=== PATIENT | female | born 1965 | race Caucasian/White ===

== ENCOUNTER 2021-12-06 14:31 | Emergency (ER) | payer MEDICARE, SELFPAY ==
[2021-12-06 14:43] VITALS: BP 130/84; PULSE 87; TEMP 35.7; BMI 20.3
--- NOTE | 2021-12-06 14:56 | ED_ITS ---
HPI - General Adult General Time Seen by Provider: 14:56 Date Seen: 12/06/21 Chief complaint: Jaw Injury/Pain Stated complaint: Swelling, pain left side jaw Time Seen by Provider: 12/06/21 14:54 Source: patient and RN notes reviewed Mode of arrival: ambulatory Limitations: no limitations History of Present Illness HPI narrative: Patient is a 56-year-old female coming in with increasing dental pain and swelling in her left lower jaw. She has not had any fevers. She does have a dentist but states she always the dentist money. This tooth has been bothering her for couple days now. The face started swelling. It is painful in her mouth. Related Data Home Medications Medication Instructions Recorded Confirmed albuterol sulfate 90 mcg/actuation inhalation 12/06/21 aerosol inhaler (Ventolin HFA) duloxetine 60 mg capsule,delayed mg PO 12/06/21 release ergocalciferol (vitamin D2) 1,250 12/06/21 mcg (50,000 unit) capsule omeprazole 40 mg capsule,delayed mg 12/06/21 release ondansetron 4 mg disintegrating mg 12/06/21 tablet pregabalin 150 mg capsule mg 12/06/21 simvastatin 10 mg tablet mg 12/06/21 trazodone 50 mg tablet mg 12/06/21 Previous Rx's Medication Instructions Recorded penicillin V potassium 500 mg 500 mg PO TID #21 tabs 12/06/21 tablet Allergies Allergy/AdvReac Type Severity Reaction Status Date / Time kiwi Allergy Uncoded 12/06/21 14:47 Review of Systems Narrative: As per HPI PFSH PFSH Social History Smoking Status: Current every day smoker What tobacco products do you use: cigarettes Do you use any of these nicotine containing products: E-Cigarettes Second hand tobacco smoke exposure: No How often do you have a drink containing alcohol: never How often do you have six or more drinks on one occasion: Never AUDIT-C Alcohol total score: 0 Non-prescribed substance use: denies use Exam Const: Vital Signs, click to edit/add: Vital Signs - 24 hr 12/06/21 14:43 Temperature 96.3 F L Pulse Rate [Left P ulse Oximeter] 87 Blood Pressure [Ri ght Upper Arm] 130/84 Oxygen Delivery Me thod Room Air Documenting provider has reviewed patient's vital signs: yes Common normals: no apparent distress, oriented x3, no limitations, healthy appearing and alert Nutritional appearance: thin HENMT: Common normals: normocephalic, head/scalp atraumatic, hearing grossly normal bilaterally, external ears normal, external nose normal and nasal mucous membranes and turbinates normal Head and scalp: normocephalic and atraumatic Nose: external nose normal and nasal mucous membranes and turbinates normal External ear: external ears normal Other: In the left lower oral mucosa along the lower canine to 1st molar there is erythematous mucosa and fluctuant bulging that is severely tender. Externally along the the Hammad the outside she has some erythema and soft tissue swelling without fluctuance. She is able to fully open her mouth, no trismus. The teeth overlying this obvious abscess do look to be in good repair. Eye: Common normals: PERRL, EOMs intact bilaterally, conjunctivae normal and no scleral icterus Conjunctiva: conjunctiva(e) normal Pupil: PERRL Neck & C-Spine: Common normals: full ROM, no lymphadenopathy, supple, no meningeal signs, no JVD and thyroid normal Thyroid: thyroid normal Resp: Common normals: normal respiratory effort, no retractions, no use of accessory muscles and clear to auscultation bilaterally Auscultation: clear to auscultation bilaterally Cardio: Common normals: no JVD, regular rate, regular rhythm, S1 normal heart sound, S2 normal heart sound, no gallops, no clicks and no murmurs Rate: regular rate Rhythm: regular rhythm Heart sounds: S1 normal and S2 normal Neuro: Common normals: oriented x3 Sensorium/orientation: alert Meni ngeal signs: no meningeal signs Course Vital Signs Vital signs: Initial Vital Signs Temperature 96.3 F L 12/06/21 14:43 Temperature Source Temporal Artery Scan 12/06/21 14:43 Pulse Rate 87 12/06/21 14:43 Blood Pressure 130/84 12/06/21 14:43 Blood Pressure Mean 99 12/06/21 14:43 Blood Pressure Position Sitting 12/06/21 14:43 Oxygen Delivery Method 12/06/21 14:43 Vital Signs Temperature 96.3 F L 12/06/21 14:43 Pulse Rate 87 12/06/21 14:43 Blood Pressure 130/84 12/06/21 14:43 Oxygen Delivery Method 12/06/21 14:43 Temperature 96.3 F L 12/06/21 14:43 Pulse Rate 87 12/06/21 14:43 Blood Pressure 130/84 12/06/21 14:43 Oxygen Delivery Method 12/06/21 14:43 Critical Care Time Critical Care Time Critical Care Time: No Discharge Plan Discharge Clinical Impression: Encounter for incision and drainage procedure, Abscess, dental Condition: Stable Instructions: Dental Abscess (ED) Additional Instructions: Need to start antibiotics and take as prescribed. Do need to follow-up with your dentist PEREZ. It is imperative to get definitive care and thus will have to happen through a dentist. Tylenol and ibuprofen per bottle directions as needed for pain control. If further concerns, feel infection is worsening, do recommend seeking re-evaluation. Activity Level: Activity as Tolerated Diet Detail: Can eat and drink as tolerated. Be aware that salty or acidic foods may irritates this site. You have to see what you tolerate tolerate. Prescriptions: New penicillin V potassium 500 mg tablet 500 mg PO TID Qty: 21 0RF No Action trazodone 50 mg tablet Label Comments: TAKE ONE TABLET BY MOUTH ONE TIME DAILY AT BEDTIME simvastatin 10 mg tablet Label Comments: TAKE ONE TABLET BY MOUTH ONE TIME DAILY AT BEDTIME omeprazole 40 mg capsule,delayed release(DR/EC) Label Comments: TAKE ONE CAPSULE BY MOUTH ONE TIME DAILY ergocalciferol (vitamin D2) 1,250 mcg (50,000 unit) capsule Label Comments: TAKE ONE CAPSULE BY MOUTH WEEKLY albuterol sulfate [Ventolin HFA] 90 mcg/actuation HFA aerosol inhaler INHALATION Label Comments: INHALE TWO PUFFS BY MOUTH FOUR TIMES DAILY NEEDED ondansetron 4 mg tablet,disintegrating Label Comments: DISSOLVE ONE TABLET IN MOUTH DAILY NEEDED duloxetine 60 mg capsule,delayed release(DR/EC) PO Label Comments: TAKE TWO CAPSULES BY MOUTH DAILY pregabalin 150 mg capsule Label Comments: TAKE ONE OR TWO CAPSULES BY MOUTH DAILY NEEDED FOR PAIN Follow Up/Referrals: Corrine Foster PA-C [Referring] - [facility] Inst[facility] Procedures I/D Type: abscess (Dental) Details: simple Pre procedure diagnosis: Dental abscess Post procedure diagnosis: Same Verification/time out: correct patient, correct site and correct procedure Name of person performing procedure: Margarita Salvador Side (if applicable): left Local Anesthetic: lidocaine 1% (1 mL drawn up but 0.4 mL used as that is all patient could tolerate locally) Amount of anesthesia used (mL): 0.4 Technique: incised with #11 blade Amount of fluid expressed (mL): 1 Irrigation: No Packing used?: none Estimated blood loss (if any): other (specify) (Minimal oozing noted after the incision) Specimens removed (if any): None Conclusion: patient tolerated procedure
== END 2021-12-06 15:30 | disposition home or self-care (01) ==
PROVIDERS: Emergency Provider Family Medicine; PCP Physician Assistant
DX: L02.818 Cutaneous abscess of other sites (principal); K04.7 Periapical abscess without sinus
CPT/HCPCS: 10060; 41800; 99283

== ENCOUNTER 2023-09-29 19:48 | Emergency (ER) | payer MEDICARE, SELFPAY ==
[2023-09-29 20:05] VITALS: BP 138/82; PULSE 82; RESP 18; TEMP 36.6; O2SAT 98; BMI 19.3
--- NOTE | 2023-09-29 20:34 | ED.GENADULT ---
HPI - General Adult General Date Seen: 09/29/23 Chief complaint: Dental/Oral/Mouth Injury/Pain Stated complaint: L side jaw swollen Time Seen by Provider: 09/29/23 20:32 History of Present Illness HPI narrative: 58-year-old female presenting with swelling along her left jaw this been ongoing for 3 days. She has a history of an abscessed tooth on that side and has had some drainage from the left side on her gums. No fever or chills. She is not diabetic or immunosuppressed. She was brushing her teeth yesterday and she noted that it started to drain some pus for on the root of that tooth but it is still swollen and she suspects is probably still an abscess in there. She does not have money to afford her dentist. She says her dental clinic wants 500 dollars to pull her tooth. She recalls in the past she did have a incision and drainage in the ER and then a course of antibiotics get her to calm down. Review of medical record indicates that she was seen in the ER in November 2021. Treated with a course of penicillin V for the dental abscess. Related Data Home Medications ?Medication ?Instructions ?Recorded ?Confirmed albuterol sulfate 90 mcg/actuation inhalation 12/06/21 aerosol inhaler (Ventolin HFA) duloxetine 60 mg capsule,delayed mg PO 12/06/21 release ergocalciferol (vitamin D2) 1,250 12/06/21 mcg (50,000 unit) capsule omeprazole 40 mg capsule,delayed mg 12/06/21 release ondansetron 4 mg disintegrating mg 12/06/21 tablet pregabalin 150 mg capsule mg 12/06/21 simvastatin 10 mg tablet mg 12/06/21 trazodone 50 mg tablet mg 12/06/21 Previous Rx's ?Medication ?Instructions ?Recorded penicillin V potassium 500 mg 500 mg PO TID #21 tabs 12/06/21 tablet hydrocodone 5 mg-acetaminophen 325 1 tab PO Q6H PRN pain #10 tabs 09/29/23 mg tablet penicillin V potassium 500 mg 500 mg PO QID #40 tabs 09/29/23 tablet Allergies Allergy/AdvReac Type Severity Reaction Status Date / Time amitriptyline Allergy Verified 09/29/23 20:09 kiwi Allergy Uncoded 12/06/21 14:47 PFSH PFSH Social History Smoking Status: Current every day smoker What tobacco products do you use: cigarettes Do you use any of these nicotine containing products: E-Cigarettes Second hand tobacco smoke exposure: No How often do you have a drink containing alcohol: never How often do you have six or more drinks on one occasion: Never AUDIT-C Alcohol total score: 0 Non-prescribed substance use: denies use Exam Narrative: Exam Narrative: Constitutional: Appears well-developed and well-nourished. Alert. Conversant. Non toxic. HENT: Head: Atraumatic. Nose: Nose normal. Mouth/Throat: Oral mucosa is clear and moist. no trismus. Airway patent. Phonation normal. Pharynx normal. Tonsils symmetric. No tonsillar enlargement, erythema, or exudate. She is status post extraction of her 2 posterior molars on the right side of her mandible. It looks like she has had extraction of the wisdom tooth on the left side of her mandible. She does appear to have teeth number 18 and 19 as well as the premolars on that side present. There is gingival redness and swelling as well as some fullness in the inferior fornix on the left side of her mandible. This corresponds to an area of swelling affecting the lateral side of the skin around her mandible. Suspect that there is a gingival abscess. There is no submandibular swelling. No signs of submandibular abscess or Gunnar's angina. Eyes: Conjunctivae normal. EOM normal. Pupils equal, round, and reactive to light. No scleral icterus. Neck: Normal range of motion. Neck supple. No tracheal deviation present. Cardiovascular: Normal rate, regular rhythm. No gallop. No friction rub. No murmur heard. Symmetric radial artery pulses Pulmonary/Chest: Effort normal. No stridor. No respiratory distress. No wheezes. No rales. No rhonchi . Musculoskeletal: RUE: Normal range of motion. No tenderness. No deformity LUE: Normal range of motion. No tenderness. No deformity RLE: Normal range of motion. No edema. No tenderness. No deformity LLE: Normal range of motion. No edema. No tenderness. No deformity Lymph: She does have left anterior cervical adenopathy. Neurological: Alert and oriented to person, place, and time. Normal strength. CN II-VII intact. No sensory deficit. GCS eye subscore is 4. GCS verbal subscore is 5. GCS motor subscore is 6. Normal coordination Skin: Skin is warm and dry. No rash noted. No pallor. Normal capillary refill. Psychiatric: Normal mood. Normal affect. Const: Vital Signs, click to edit/add: Vital Signs - 24 hr 09/29/23 20:05 Temperature 98 F Pulse Rate [Pulse Oximeter] 82 Respiratory Rate 18 Blood Pressure [Ri ght Upper Arm] 138/82 Pulse Oximetry 98 Oxygen Delivery Me thod Room Air Course Course ED Course: Procedure: Left inferior alveolar nerve block Indication left mandibular dental pain and left mandibular periapical abscess Procedure: Verbal consent obtained from the patient. Identified the correct site and side and location. Patient has no allergies. Using a 27 gauge needle after aspiration we injected 3 mL of 0.25% bupivacaine and the area of the left inferior alveolar nerve. Unfortunately the patient only had anesthesia of her tongue (lingual nerve) but not her jaw bone. Second injection of 1.5 mL of 0.25% bupivacaine was performed. Still only partial anesthesia. Her tongue was numb but in a most of her lip and cheek. We did a 3rd injection of 1 mL of 0.25% bupivacaine. Partial anesthesia achieved. No complications noted. Procedure: Incision and drainage of left mandibular gingival abscess Indication: Left mandibular gingival abscess After verbal consent the appropriate site and side was identified. Using 11 blade scalpel I made a single stab incision into the area of swelling and fluctuance. We did get drainage of brownish/reddish purulent/bloody fluid from the abscess. Patient tolerated the procedure well. No complications noted. Vital Signs Vital signs: Initial Vital Signs Temperature 98 F 09/29/23 20:05 Temperature Source Temporal Artery Scan 09/29/23 20:05 Pulse Rate 82 09/29/23 20:05 Respiratory Rate 18 09/29/23 20:05 Blood Pressure 138/82 09/29/23 20:05 Blood Pressure Mean 100 09/29/23 20:05 Blood Pressure Position Sitting 09/29/23 20:05 Pulse Oximetry 98 09/29/23 20:05 Oxygen Delivery Method Room Air 09/29/23 20:05 Vital Signs Temperature 98 F 09/29/23 20:05 Pulse Rate 82 09/29/23 20:05 Respiratory Rate 18 09/29/23 20:05 Blood Pressure 138/82 09/29/23 20:05 Pulse Oximetry 98 09/29/23 20:05 Oxygen Delivery Method Room Air 09/29/23 20:05 Temperature 98 F 09/29/23 20:05 Pulse Rate 82 09/29/23 20:05 Respiratory Rate 18 09/29/23 20:05 Blood Pressure 138/82 09/29/23 20:05 Pulse Oximetry 98 09/29/23 20:05 Oxygen Delivery Method Room Air 09/29/23 20:05 Medications Administered Medications: Discontinued Medications Generic Name Dose Route Start Last Admin Trade Name Falguni PRN Reason Stop Dose Admin Bupivacaine HCl/Epinephrine Bitart 5 ml 09/29/23 20:50 09/29/23 21:15 Bupivacaine 0.25 %/Epi 1:200k 30 Ml INJECTION 09/29/23 20:51 5 ml ONCE ONE Administration Penicillin V Potassium 500 mg 09/29/23 20:50 09/29/23 21:26 Penicillin Vk 250 Mg Tablet PO 09/29/23 20:51 500 mg ONCE ONE Administration Medical Decision Making MDM Narrative Medical decision making narrative: This patient presents with a tooth ache and pain affecting her left lateral mandible. She has swelling of her left lateral gums adjacent to the mandible and left lower cheek suggestive of a left periapical abscess.. The differential diagnosis includes: cracked tooth syndrome, pulpitis, sub-apical abscess, amongst others. Although she has a periapical/gingival abscess There is no evidence of buccinator/canine space infections, significant facial swelling, or Gunnar's angina. No trismus or submandibular swelling or any sign of airway compromise. She is not febrile. She has no history of diabetes or immunosuppression. There are no posterior pharyngeal space infections detected. We did perform incision and drainage of the swollen area while in the ER after a left inferior alveolar nerve block. Treatment with NSAID, Sullivan for pain. Opiate precautions reviewed. Will start penicillin to treat the associated surrounding gingival and facial cellulitis. First dose of penicillin administered while here in the ER. At this point I do not think she needs to be admitted for IV antibiotics. She does need close follow-up with with a dentist within the next 2-3 days. is indicated for further work up and treatment. Instructions for return to the ER were reviewed with the patient. She received her 1st dose of Sullivan here in the ER. Opiate precautions reviewed. She has a sober adult to drive her home. Prescriptions for Sullivan 5/320 5-10 tablets E prescribed to cover pharmacy Penicillin V 500 mg q.i.d. for 10 days Discharge Plan Discharge Clinical Impression: Gingival abscess, Cellulitis of face Patient Disposition: Home, Self-Care Condition: Stable Instructions: Dental Abscess (ED), Cellulitis (ED) Additional Instructions: As we discussed, please come back to the ER right away if you have any problems-especially if you have high fever, increasing swelling, worsening pain, swelling under your jaw bone or trouble opening her mouth, trouble breathing. Take the antibiotics as prescribed. Use the pain medications if needed, but be careful because pain meds can cause drowsiness, dizziness, and can be addictive. Do not drive for 6 hours after taking a pain pill. Please follow-up with your dentist as soon as possible-within 2-3 days. Prescriptions: New hydrocodone-acetaminophen 5-325 mg tablet 1 tab PO Q6H PRN (Reason: pain) Qty: 10 0RF penicillin V potassium 500 mg tablet 500 mg PO QID Qty: 40 0RF No Action trazodone 50 mg tablet Patient Comments: TAKE ONE TABLET BY MOUTH ONE TIME DAILY AT BEDTIME simvastatin 10 mg tablet Patient Comments: TAKE ONE TABLET BY MOUTH ONE TIME DAILY AT BEDTIME omeprazole 40 mg capsule,delayed release(DR/EC) Patient Comments: TAKE ONE CAPSULE BY MOUTH ONE TIME DAILY ergocalciferol (vitamin D2) 1,250 mcg (50,000 unit) capsule Patient Comments: TAKE ONE CAPSULE BY MOUTH WEEKLY albuterol sulfate [Ventolin HFA] 90 mcg/actuation HFA aerosol inhaler INHALATION Patient Comments: INHALE TWO PUFFS BY MOUTH FOUR TIMES DAILY NEEDED ondansetron 4 mg tablet,disintegrating Patient Comments: DISSOLVE ONE TABLET IN MOUTH DAILY NEEDED duloxetine 60 mg capsule,delayed release(DR/EC) PO Patient Comments: TAKE TWO CAPSULES BY MOUTH DAILY pregabalin 150 mg capsule Patient Comments: TAKE ONE OR TWO CAPSULES BY MOUTH DAILY NEEDED FOR PAIN penicillin V potassium 500 mg tablet 500 mg PO TID Qty: 21 0RF Follow Up/Referrals: Kelly Diaz PA [Primary Care Provider] - Stand Alone Forms: [facility] Info Instructions
[2023-09-29] MEDS: BUPIVACAINE 0.25 %/EPI 1:200K 30 ml 5 ML INJECTION (21:15)
[2023-09-29] MEDS: PENICILLIN VK 250 MG TABLET 500 MG PO (21:26)
[2023-09-29] MEDS: HYDROCODONE-ACETAMIN 5-325 MG 1 TAB PO (22:03)
== END 2023-09-29 22:05 | disposition home or self-care (01) ==
PROVIDERS: Emergency Provider Emergency Medicine; PCP Physician Assistant
DX: K04.7 Periapical abscess without sinus (principal); L03.211 Cellulitis of face
CPT/HCPCS: 10060; 99282; 99283; 99284; A9270